=== PATIENT | male | born 1950 | race Caucasian/White ===

== ENCOUNTER 2024-08-12 11:26 | Inpatient (IN) | payer MEDICARE ==
[~2024-08-12] VITALS: Ht 190.5 cm; Wt 75.5 kg
[2024-08-12 11:50] VITALS: BP 143/82; PULSE 61; RESP 18; TEMP 97.7; O2SAT 98
[2024-08-12] MEDS ORDERED: ONDANSETRON 4 MG TABLET PO PRN (13:30)
[2024-08-12 20:02] VITALS: BP 125/76; PULSE 56; RESP 18; TEMP 97.7; O2SAT 98
[2024-08-12] MEDS: BUDESONIDE/FORMOTEROL FUMARATE 160-4.5 MCG/PUFF 10.2 GM INHALER IH SCH (20:58)
[2024-08-12] MEDS: ETHYL ALCOHOL 62% ANTISEPTIC NASAL SANITIZER 0.6 ML AMPUL NASAL SCH (20:59)
[2024-08-12] MEDS: DOCUSATE SODIUM 100 MG CAPSULE PO SCH (20:59)
[2024-08-12] MEDS: SENNOSIDES 8.6 MG TABLET PO SCH (20:59)
[2024-08-12] MEDS: MELATONIN 5 MG TABLET PO PRN (21:00)
[2024-08-12] MEDS: HEPARIN SODIUM,PORCINE 5,000 UNITS/ML VIAL SQ SCH (21:01)
[2024-08-12] MEDS: ATORVASTATIN CALCIUM 40 MG TABLET PO SCH (21:02)
[2024-08-12 23:36] VITALS: O2SAT 98
[2024-08-13 07:06] LABS: BASOPHILS % (AUTO) 1.3 % (0.0-2.0); EOSINOPHILS % (AUTO) 5.1 % (1.0-6.0); HEMATOCRIT 41.4 % (41-53); HEMOGLOBIN 14.1 g/dL (13.5-17.5); LYMPHOCYTES # (AUTO) 1.1 K/uL (1.0-4.8); LYMPHOCYTES % (AUTO) 22.1 % (22.0-44.0); MEAN CORPUSCULAR HEMOGLOBIN 31.7 pg (26.0-34.0); MEAN CORPUSCULAR HGB CONC 34.1 G/dL (31.0-37.0); MEAN CORPUSCULAR VOLUME 93 fL (80-100); MONOCYTES # (AUTO) 0.6 K/uL (0.1-1.0); MONOCYTES % (AUTO) 11.7 % (2.0-9.0); NEUTROPHILS % (AUTO) 59.8 % (40.0-70.0); PLATELET COUNT (AUTO) 231 K/uL (150-450); RED BLOOD CELL COUNT(AUTO) 4.46 MIL/uL (4.50-5.90); RED CELL DISTRIBUTION WIDTH 13.5 % (11.5-14.5)
[2024-08-13 07:27] LABS: ALANINE AMINOTRANSFERASE 18 U/L (12-78); ALBUMIN 2.9 g/dL (3.4-5.0); ALKALINE PHOSPHATASE 69 U/L (46-116); ANION GAP 7 mmol/L (8-16); ASPARTATE AMINOTRANSFERASE 21 U/L (15-37); BILIRUBIN,TOTAL 0.9 mg/dL (0.1-1.0); CALCIUM, TOTAL 8.6 mg/dL (8.8-10.5); CARBON DIOXIDE 30 mmol/L (22-29); CHLORIDE 105 mmol/L (98-107); CREATININE 1.11 mg/dL (0.60-1.30); GLOMERULAR FILTR. RATE CALC > 60 mL/min (>60); GLUCOSE,RANDOM 85 mg/dL (70-110); SODIUM SERUM 142 mmol/L (136-145); TOTAL PROTEIN, SERUM 6.2 g/dL (6.4-8.2); UREA NITROGEN, BLOOD 13 mg/dL (7-18)
[2024-08-13 08:00] VITALS: BP 134/81; PULSE 60; RESP 16; TEMP 98.5; O2SAT 98
[2024-08-13] MEDS: ASPIRIN 81 MG CHEWABLE TABLET PO SCH (09:12)
[2024-08-13] MEDS: LACTOBAC ACID/BULG/BIFID/THERM TABLET PO SCH (09:15)
[2024-08-13] MEDS: TAMSULOSIN HCL 0.4 MG CAPSULE PO SCH (09:15)
[2024-08-13] MEDS: AmLODIPine BESYLATE 5 MG TABLET PO SCH (09:15)
[2024-08-13] MEDS: CLOPIDOGREL BISULFATE 75 MG TABLET PO SCH (09:15)
[2024-08-13] MEDS: MONTELUKAST SODIUM 10 MG TABLET PO SCH (09:17)
[2024-08-13] MEDS: ACETAMINOPHEN 325 MG TABLET PO PRN (14:04)
[2024-08-13 20:16] VITALS: BP 130/81; PULSE 57; RESP 18; TEMP 98.1; O2SAT 96
[2024-08-13 20:56] VITALS: O2SAT 96
[2024-08-14 08:00] VITALS: BP 144/80; PULSE 58; RESP 18; TEMP 97.6; O2SAT 95; O2SAT 96
[2024-08-14 19:43] VITALS: BP 128/64; PULSE 52; RESP 18; TEMP 98.1; O2SAT 98
[2024-08-14] MEDS: SENNOSIDES 8.6 MG TABLET PO SCH (21:00)
[2024-08-14] MEDS: DOCUSATE SODIUM 250 MG CAPSULE PO SCH (21:00)
[2024-08-14] MEDS: MONTELUKAST SODIUM 10 MG TABLET PO SCH (21:01)
[2024-08-15 00:03] VITALS: O2SAT 98
[2024-08-15 07:40] VITALS: BP 136/77; PULSE 52; RESP 18; TEMP 98.6; O2SAT 99
[2024-08-15 08:56] VITALS: O2SAT 99
[2024-08-15 13:04] VITALS: PULSE 57; O2SAT 97
[2024-08-15 20:00] VITALS: BP 120/73; PULSE 56; RESP 17; TEMP 98.2; O2SAT 98
[2024-08-16 03:49] VITALS: O2SAT 98
[2024-08-16 08:00] VITALS: BP 132/72; PULSE 48; RESP 16; TEMP 98.1; O2SAT 100
[2024-08-16 08:10] VITALS: PULSE 60
[2024-08-16 20:01] VITALS: BP 118/75; PULSE 57; RESP 18; TEMP 97.9; O2SAT 99
[2024-08-16 21:30] VITALS: O2SAT 99
[2024-08-17 08:00] VITALS: BP 133/90; PULSE 49; RESP 19; TEMP 98.2; O2SAT 99
[2024-08-17 08:05] VITALS: PULSE 64
[2024-08-17 20:00] VITALS: BP 133/73; PULSE 50; RESP 18; TEMP 97.5; O2SAT 98
[2024-08-17] MEDS: TAMSULOSIN HCL 0.4 MG CAPSULE PO SCH (21:15)
[2024-08-18 08:00] VITALS: BP 119/79; PULSE 44; RESP 18; TEMP 98.2; O2SAT 100
[2024-08-18 08:05] VITALS: PULSE 58
[2024-08-18] MEDS ORDERED: TESTOSTERONE CYPIONATE 200 MG/ML VIAL IM SCH (09:00)
[2024-08-18 20:00] VITALS: O2SAT 98
[2024-08-18 20:03] VITALS: BP 137/73; PULSE 47; RESP 18; TEMP 97.3; O2SAT 98
[2024-08-19 08:00] VITALS: BP 139/65; PULSE 63; RESP 18; TEMP 97.9; O2SAT 99
[2024-08-19] MEDS: TESTOSTERONE CYPIONATE 200 MG/ML VIAL IM SCH (16:03)
[2024-08-19 20:15] VITALS: BP 135/78; PULSE 45; RESP 18; TEMP 98.2; O2SAT 98
[2024-08-19 20:30] VITALS: PULSE 47
[2024-08-20] MEDS ORDERED: TAMS0.4C94 PO (02:51)
[2024-08-20] MEDS ORDERED: BUDE10.27 IH (02:51)
[2024-08-20] MEDS ORDERED: ASPI-1444 PO (02:51)
[2024-08-20] MEDS ORDERED: ACID1TAB13 PO (02:51)
[2024-08-20] MEDS ORDERED: SENN-376 PO (02:51)
[2024-08-20] MEDS ORDERED: ATOR40TA28 PO (02:51)
[2024-08-20] MEDS ORDERED: CLOP75TA83 PO (02:51)
[2024-08-20] MEDS ORDERED: DOCU-412 PO (02:51)
[2024-08-20] MEDS ORDERED: MONT-35 PO (02:51)
[2024-08-20] MEDS ORDERED: AMLO-257 PO (02:51)
[2024-08-20 05:15] VITALS: BP 134/67; PULSE 51
[2024-08-20] MEDS: POLYETHYLENE GLYCOL 3350 17 GM PACKET PO PRN (06:03)
[2024-08-20 08:00] VITALS: BP 147/84; PULSE 55; RESP 18; TEMP 97.7; O2SAT 99
[2024-08-20 20:00] VITALS: O2SAT 99
[2024-08-20 20:02] VITALS: BP 108/73; PULSE 53; RESP 18; TEMP 98.2; O2SAT 96
[2024-08-20 21:30] VITALS: O2SAT 96
[2024-08-21 08:00] VITALS: BP 128/66; PULSE 48; RESP 18; TEMP 97.2; O2SAT 98
[2024-08-21 11:25] VITALS: O2SAT 98
[2024-08-21] MEDS ORDERED: TEST200V21 IM (11:59)
[2024-08-21] MEDS ORDERED: BUDE10.2 IH (12:00)
[2024-08-21 20:00] VITALS: BP 138/77; PULSE 48; RESP 18; TEMP 98.6; O2SAT 99
[2024-08-21] MEDS: DICLOFENAC SODIUM 1% 100 GM GEL [4GM] TP SCH (20:55)
[2024-08-22 08:00] VITALS: BP 137/82; PULSE 58; RESP 18; TEMP 97.5; O2SAT 99
[2024-08-22 20:00] VITALS: BP 129/70; PULSE 48; RESP 18; TEMP 98.1; O2SAT 98
[2024-08-22 23:11] VITALS: O2SAT 98
[2024-08-23 00:50] VITALS: PULSE 48
[2024-08-23 08:00] VITALS: BP 140/91; PULSE 64; RESP 18; TEMP 97.1; O2SAT 99
[2024-08-23 20:09] VITALS: BP 125/75; PULSE 53; RESP 18; TEMP 98.4; O2SAT 98
[2024-08-23 20:35] VITALS: O2SAT 98
[2024-08-24 08:00] VITALS: BP 125/75; PULSE 55; RESP 17; TEMP 97.9; O2SAT 99
[2024-08-24] MEDS ORDERED: MONT-35 PO (12:07)
[2024-08-24] MEDS ORDERED: TAMS0.4C94 PO (12:07)
[2024-08-24] MEDS ORDERED: DOCU-412 PO (12:07)
[2024-08-24] MEDS ORDERED: BUDE10.26 IH (12:07)
[2024-08-24] MEDS ORDERED: DICL100G60 TP (12:07)
[2024-08-24] MEDS ORDERED: AMLO-257 PO (12:07)
[2024-08-24] MEDS ORDERED: ATOR40TA71 PO (12:07)
[2024-08-24] MEDS ORDERED: SENN-374 PO (12:07)
[2024-08-24] MEDS ORDERED: CLOP75TA83 PO (12:07)
[2024-08-24] MEDS ORDERED: ASPI-1450 PO (12:07)
== END 2024-08-24 13:00 | disposition home health service (06) | DRG 57 ==
LOC: 2WR 11:45
PROVIDERS: ADMIT Physical Medicine & Rehabilitation; ATTEND Physical Medicine & Rehabilitation
DX: I69.351 Hemiplegia and hemiparesis following cerebral infarction affecting right dominant side (principal); C79.31 Secondary malignant neoplasm of brain; C34.90 Malignant neoplasm of unspecified part of unspecified bronchus or lung; E46 Unspecified protein-calorie malnutrition; G91.9 Hydrocephalus, unspecified; I69.391 Dysphagia following cerebral infarction; R47.1 Dysarthria and anarthria; R13.10 Dysphagia, unspecified; R48.2 Apraxia; R41.89 Other symptoms and signs involving cognitive functions and awareness; Z74.09 Other reduced mobility; G70.00 Myasthenia gravis without (acute) exacerbation; R29.6 Repeated falls; E78.5 Hyperlipidemia, unspecified; R62.7 Adult failure to thrive; H91.90 Unspecified hearing loss, unspecified ear; G89.29 Other chronic pain; M25.511 Pain in right shoulder; F32.A Depression, unspecified; I10 Essential (primary) hypertension; M50.30 Other cervical disc degeneration, unspecified cervical region; N40.0 Benign prostatic hyperplasia without lower urinary tract symptoms; M25.561 Pain in right knee; Z85.118 Personal history of other malignant neoplasm of bronchus and lung; Z98.2 Presence of cerebrospinal fluid drainage device; Z68.20 Body mass index [BMI] 20.0-20.9, adult; Z79.899 Other long term (current) drug therapy
CPT/HCPCS: 74230; 80053; 85025; 87081; 92507; 92526; 92610; 92611; 97110; 97112; 97116; 97162; 97167; 97530; 97535; 99366; J1071; J1644